=== PATIENT | male | born 1955 | race Two or more races ===

== ENCOUNTER 2018-10-30 23:15 | Inpatient (IN) | payer OTHER ==
[~2018-10-30] VITALS: Ht 170.2 cm; Wt 93.9 kg
--- NOTE | 2018-10-30 23:45 | NUR ---
TO BED 2 [facility] C/O FEVER AND CONGESTION. PT AWAKE, LETHARGIC, RESPONDS TO VOICE BUT FALLS BACK ASLEEP. PT CONFUSED, NO ACUTE DISTRESS NOTED, RESP EVEN AND UNLABORED. PLACE PT ON CARDIAC MONITORING, CONTINUOUS POX, O2@2L/NC. PENDING ER MD STEPHENSON.
[2018-10-31] VITALS (22 sets, daily range): BP systolic 125–157; BP diastolic 68–98
--- NOTE | 2018-10-31 00:15 | NUR ---
STARTED SL 18G TO L HAND, BLOOD DRAWN AND SENT TO LAB.
[2018-10-31 00:42] LABS: BASOPHILS # (AUTO) 0.1 /CMM (0.0-0.2); BASOPHILS % (AUTO) 0.7 % (0.0-2.0); EOSINOPHILS % (AUTO) 0.1 % (0.0-6.0); HEMATOCRIT 59 % (39-51); HEMOGLOBIN 18.8 g/dL (13.5-17.5); LYMPHOCYTES # (AUTO) 1.6 /CMM (0.8-4.8); LYMPHOCYTES % (AUTO) 9.2 % (20.0-44.0); MEAN CORPUSCULAR HGB CONC 32 g/dl (31.0-36.0); MEAN CORPUSCULAR VOLUME 93 fL (80-96); MONOCYTES # (AUTO) 1.3 /CMM (0.1-1.30); MONOCYTES % (AUTO) 7.6 % (2.0-12.0); NEUTROPHILS # (AUTO) 14.5 /CMM (1.8-8.9); NEUTROPHILS % (AUTO) 82.4 % (43.0-81.0); PLATELET COUNT (AUTO) 248 /CMM (150-450); RED BLOOD CELL COUNT(AUTO) 6.29 MIL/uL (4.5-6.0); WHITE BLOOD COUNT (AUTO) 17.6 K/uL (4.3-11.0)
[2018-10-31] MEDS ORDERED: LIDOCAINE 2% JEL UROJET 10 ML MM ONE (00:56)
[2018-10-31 01:01] LABS: LYMPHOCYTES % (MANUAL) 7 % (16-48); MONOCYTES % (MANUAL) 4 % (0-11.0); NEUTROPHILS % (MANUAL) 89 (42-76)
--- NOTE | 2018-10-31 01:05 | NUR ---
I&O CATH DONE, URINE SAMPLE COLLECTED AND SENT TO LAB.
[2018-10-31 01:06] LABS: ALANINE AMINOTRANSFERASE 56 U/L (12-78); ALBUMIN 3.7 g/dL (3.4-5.0); ALKALINE PHOSPHATASE 173 U/L (46-116); ASPARTATE AMINOTRANSFERASE 21 U/L (15-37); B-TYPE NATRIURETIC PEPTIDE 256 PG/ML (0-125); BILIRUBIN,DIRECT 0.2 mg/dL (0.0-0.2); BILIRUBIN,TOTAL 0.7 mg/dL (0.2-1.0); CARBON DIOXIDE 18 mmol/L (21-32); CHLORIDE 114 mmol/L (98-107); CREATININE 2.4 mg/dL (0.6-1.3); POTASSIUM 4.1 mmol/L (3.5-5.1); SODIUM SERUM 155 mmol/L (136-145); TOTAL PROTEIN, SERUM 9.2 g/dL (6.4-8.2); UREA NITROGEN, BLOOD 40 mg/dL (7-18)
[2018-10-31 01:11] LABS: GLUCOSE 615 mg/dL (74-106)
[2018-10-31 01:11] LABS: APPEARANCE,URINE Clear (CLEAR); BILIRUBIN,URINE SMALL (NEGATIVE); BLOOD, URINE Moderate Ery/uL (NEGATIVE); COLOR,URINE Yellow (YELLOW); KETONES,URINE 80 (NEGATIVE); LEUKOCYTE ESTERASE ,URINE Negative (NEGATIVE); NITRITE, URINE Negative (NEGATIVE); PROTEIN,URINE 100 mg/dl (NEGATIVE); UGLUCOSE 500 MG/DL mg/dL (NEGATIVE); UROBILINOGEN,URINE 0.2 EU/dL (0.2)
[2018-10-31] MEDS ORDERED: PIPERACILLIN /TAZOBACTAM 3.375 G VIAL IV ONE (01:11)
[2018-10-31] MEDS ORDERED: PIPERACILLIN /TAZOBACTAM 3.375 G in IV D5W 50 ML IV ONE (01:30)
[2018-10-31] MEDS ORDERED: IV NS 0.9% 1,000 ML BAG IV ONE ×3 (01:30→03:00)
[2018-10-31] MEDS ORDERED: INSULIN REGULAR, HUMAN 100 UNIT/ML 10 ML VIAL IV ONE ×2 (01:30→03:00)
[2018-10-31 01:37] LABS: BACTERIA,URINE Few /HPF (None Seen); SQUAMOUS EPITHELIAL CELL,UR Rare /HPF (None Seen); WBC,URINE 0-2 /HPF (0-3)
[2018-10-31 01:38] LABS: URINE AMORPHOUS URATE Moderate /HPF (None Seen)
[2018-10-31] MEDS ORDERED: INSULIN REGULAR, HUMAN 100 UNIT/ML 10 ML VIAL ONE (01:40)
--- NOTE | 2018-10-31 01:57 | NUR ---
PT TRANSPORTED TO RADIOLOGY FOR CT ABD/PELVIS.
--- NOTE | 2018-10-31 04:32 | NUR ---
ER SPOKE EVA OLIVERMartha REGARDING PT ADMISSION.
[2018-10-31] MEDS ORDERED: IV NS 0.9% 1,000 ML IV SCH (04:34)
[2018-10-31] MEDS ORDERED: MORPHINE SULFATE INJ 2 MG/ML DISP.SYRIN IV PRN (05:00)
[2018-10-31] MEDS ORDERED: ACETAMINOPHEN 650 MG/SUPP.RECT RC PRN (05:00)
[2018-10-31] MEDS ORDERED: BISACODYL SUPP (10 MG) 10 MG/SUPP.RECT SUPP.RECT RC ONE (05:00)
[2018-10-31] MEDS ORDERED: ONDANSETRON HCL/PF 4 MG/2 ML VIAL IVP PRN (05:00)
[2018-10-31] MEDS ORDERED: METRONIDAZOLE 500MG/ NS 100ML 100 ML IV SCH (05:00)
--- NOTE | 2018-10-31 05:29 | NUR ---
REPORT CALLED TO STOCK RECEIVERHAYCINTH SNELL. WILL TRANSPORT PT VIA ACLS PROTOCOL.
[2018-10-31 06:04] LABS: BILIRUBIN,DIRECT 0.2 mg/dL (0.0-0.2); BILIRUBIN,TOTAL 0.6 mg/dL (0.2-1.0); TOTAL PROTEIN, SERUM 7.6 g/dL (6.4-8.2)
--- NOTE | 2018-10-31 06:05 | NUR ---
BASEBALL PLAYER - NOTES - ADMISSION - RECEIVED PT FROM ER FOR DKA, PT IS AWAKE ALERT, THAI SPEAKING, PT HAS LEFT SIDED WEAKNESS, 18G IV IN LEFT THUMB, AND 20G IV IN LEFT HAND. PT IS ON 2L NC O2SAT 94%. PT IS IN SR W BBB, BP 130S. SKIN IS INTACT. WILL CONTINUE TO MONITOR
[2018-10-31 06:06] LABS: CALCIUM, SERUM 8.5 mg/dL (8.5-10.1); CREATININE 2.3 mg/dL (0.6-1.3); MAGNESIUM 2.4 mg/dL (1.8-2.4); PHOSPHORUS 3.5 mg/dL (2.5-4.9)
[2018-10-31] MEDS ORDERED: VANCOMYCIN 1.5 GM in IV D5W 500ml IV ONE (06:30)
[2018-10-31] MEDS ORDERED: VANCOMYCIN 1 GM VIAL ONE (06:43)
[2018-10-31] MEDS ORDERED: VANCOMYCIN 500 MG VIAL ONE (06:45)
[2018-10-31] MEDS: INSULIN REGULAR, HUMAN 100 UNIT in IV NS 0.9% 99 ML IV PRN ×4 (07:13→17:52)
--- NOTE | 2018-10-31 07:20 | NUR ---
RN INITIAL NOTES RECEIVED PT A/OX1, DROWSY. ON 02 AT 2LPM VIA NC. HOB ELEVATED. NO SOB NOTED. NO SIGNS OF PAIN NOTED. IV LINES IN PLACE. IVF INFUSING. PT ON INSULIN DRIP, ACCUCHECK Q1. BMP AT 1000. SKIN INTACT. BLE ELEVATED. CALL LIGHT WITHIN REACH. WILL CLOSELY MONITOR.
[2018-10-31] MEDS ORDERED: INSULIN REGULAR, HUMAN 100 UNIT/ML 3 ML VIAL SQ PRN (08:30)
[2018-10-31] MEDS ORDERED: DEXTROSE 50%-WATER 50 ML DISP.SYRIN IV PRN (08:30)
[2018-10-31] MEDS: DOCUSATE SODIUM 250 MG CAPSULE PO SCH (09:00)
[2018-10-31] MEDS ORDERED: DOCUSATE CALCIUM (240 MG) 240 MG CAPSULE PO SCH (09:00)
[2018-10-31] MEDS: PANTOPRAZOLE 40 MG VIAL IV SCH (09:00)
[2018-10-31] MEDS: PIPERACILLIN /TAZOBACTAM 3.375 G in IV D5W 50 ML IV SCH ×3 (09:05→17:12)
[2018-10-31] MEDS: BLOOD SUGAR DIAGNOSTIC 1 EACH STRIP IN SCH ×11 (09:14→21:40)
[2018-10-31] MEDS ORDERED: ACET325T53 PO (10:05)
[2018-10-31] MEDS ORDERED: BISA10SU8 RC (10:05)
[2018-10-31] MEDS ORDERED: ASPI-1169 PO (10:05)
[2018-10-31] MEDS ORDERED: GABA300C PO (10:05)
[2018-10-31] MEDS ORDERED: LEVE1000 PO (10:05)
[2018-10-31] MEDS ORDERED: LACO150T2 PO (10:05)
[2018-10-31] MEDS: ASPIRIN 81 MG TAB.CHEW PO SCH (12:00)
[2018-10-31] MEDS ORDERED: IV 1/2NS 1000 ML 1,000 ML IV PRN (12:00)
[2018-10-31] MEDS ORDERED: ACETAMINOPHEN 325 MG TABLET PO PRN (12:00)
[2018-10-31] MEDS ORDERED: BISACODYL SUPP (10 MG) 10 MG/SUPP.RECT SUPP.RECT RC PRN (12:00)
[2018-10-31] MEDS: HEPARIN SODIUM, PORCINE 5000 UNITS/1 ML VIAL SQ SCH ×2 (12:24→20:29)
[2018-10-31] MEDS: LEVETIRACETAM (500MG) 1,000 MG in IV NS 0.9% 100 ML IV SCH ×2 (12:44→20:31)
[2018-10-31] MEDS: GABAPENTIN 300 MG CAPSULE PO SCH ×2 (13:00→17:00)
--- NOTE | 2018-10-31 13:00 | NUR ---
RN NOTES 1125 SEEN AND EXAMINED BY LUCERO ROJAS NP. AWARE OF LAB VALUES: WBC 17.6, HGB 18.8, HCT 59, PLATELET 248. SODIUM 161, BUN 35, CREA 2.3, GLUCOSE 468. PT ON INSULIN DRIP. PT HAS LACTIC AND BMP DUE. UNABLE TO DRAW, PT HARD STICK, 2 PHLEBOTOMISTS TRIED 3X. PT FOR PICC INSERTION. LUCERO OK TO DO BMP AND LACTIC DRAW ONCE PICC LINE IS INSERTED. AWAITING US KIDNEY RESULT. ORDERED NEURO CONSULT WITH DR VERAS. IVF CHANGED TO 1/2NS AT 125ML/HR. 1200 PT NOTED COUGHING TOO MUCH. UNABLE TO GIVE PO MEDS D/T HIGH RISK OF ASPIRATION. PT A/OX1, CONFUSED. HOB ELEVATED. PT FOR SWALLOW EVAL. WILL CONTINUE TO MONITOR
[2018-10-31] MEDS ORDERED: FEE PK DOSING 1 MIN EA MC ONE (14:30)
--- NOTE | 2018-10-31 15:00 | NUR ---
RN NOTES 1500 PICC LINE INSERTED ON JORDIN. PLACEMENT CONFIRMED BY CXR. CALLED LAB FOR LACTIC AND BMP DRAW. WILL NOTIFY BRE BARKER FOR RESULTS
[2018-10-31 15:21] LABS: CREATININE, URINE 74.3 MG/DL (30.0-125.0); URINE TOTAL PROTEIN 52.3 mg/dL (0-11.9)
[2018-10-31 15:58] LABS: APPEARANCE,URINE SL CLOUDY (CLEAR); BILIRUBIN,URINE NEGATIVE (NEGATIVE); BLOOD, URINE 1+ Ery/uL (NEGATIVE); COLOR,URINE YELLOW (YELLOW); KETONES,URINE 3+ (NEGATIVE); LEUKOCYTE ESTERASE ,URINE NEGATIVE (NEGATIVE); NITRITE, URINE NEGATIVE (NEGATIVE); PH,URINE 5.5 (5.0-8.0); PROTEIN,URINE TRACE mg/dl (NEGATIVE); UGLUCOSE NEGATIVE (NEGATIVE); UROBILINOGEN,URINE 0.2 EU/dL (0.2)
[2018-10-31 16:09] LABS: BACTERIA,URINE None seen /HPF (None Seen); SQUAMOUS EPITHELIAL CELL,UR Rare /HPF (None Seen); WBC,URINE 0-2 /HPF (0-3)
[2018-10-31 16:30] LABS: CALCIUM, SERUM 7.9 mg/dL (8.5-10.1); CREATININE 1.6 mg/dL (0.6-1.3); MAGNESIUM 1.7 mg/dL (1.8-2.4); PHOSPHORUS 1.9 mg/dL (2.5-4.9); POTASSIUM 3.1 mmol/L (3.5-5.1)
--- NOTE | 2018-10-31 16:54 | NUR ---
RN NOTES CALLED LUCERO ROJAS NP REGARDING BMP RESULT. SODIUM 162, POTASSIUM 3.1, CHLORIDE 128, BUN 22, CREA 1.6, GLUCOSE 285. ON INSULIN DRIP AT 4.9U/HR. ON 1/2NS AT 125ML/HR. PHOS 1.9, MAGNESIUM 1.7. UNEMPLOYMENT BENEFITS CLAIMS TAKER ORDERED CHANGE TO D5 1/2 NS WITH KCL 40MEQ AT 125ML/HR, CHANGE ACCUCHECK TO Q2, KPHOS X2 BAGS AND MAGNESIUM 1GM. AWAITING FOR LACTIC ACID RESULT. WILL CONTINUE TO MONITOR.
[2018-10-31 17:00] LABS: EOSINOPHIL,URINE None Seen
[2018-10-31] MEDS ORDERED: Magnesium 1GM/D5W 100ML PREMIX PIGGYBACK IV ONE (17:00)
[2018-10-31] MEDS ORDERED: Potassium Chloride 40 MEQ in IV D5/0.45 NACL 1,000 ML IV SCH (17:00)
[2018-10-31] MEDS ORDERED: Magnesium 1GM/D5W 100ML PREMIX 100 ML IV SCH (17:30)
[2018-10-31] MEDS: POTASSIUM PHOSPHATE MM 7.5 MMOL in IV D5W 100 ML IV SCH ×2 (17:39→20:28)
--- NOTE | 2018-10-31 18:00 | NUR ---
RN NOTES SEEN AND EXAMINED BY DR VERAS. REVIEWED H&P, CURRENT MEDS AND LAB VALUES. PT A/OX1, CONFUSED. ABLE TO FOLLOW COMMANDS AND ANSER SIMPLE QUESTIONS. NO CHANGE IN LOC NOTED. WILL CONTINUE TO MONITOR.
--- NOTE | 2018-10-31 18:48 | NUR ---
RN CLOSING NOTES NO SIGNIFICANT CHANGE NOTED. NO CHANGE IN LOC NOTED. PT REMAINS ON INSULIN DRIP AT 5.08 U/HR. NEXT ACCUCHECK AT 1900. JORDIN PICC IN PLACE. IVF INFUSING. FC IN PLACE. KEPT CLEAN AND DRY. REPOSITIONED Q2. BLE ELEVATED. ALL NEEDS ATTENDED AND MET. CALL LIGHT WITHIN REACH. WILL MONITOR.
[2018-10-31] MEDS: NYSTATIN (PYXIS) 500,000 UNIT/5 ML ORAL.SUSP PO SCH (20:28)
[2018-10-31] MEDS: LACOSAMIDE 50 MG TABLET PO SCH (21:00)
[2018-10-31 21:51] LABS: CALCIUM, SERUM 7.6 mg/dL (8.5-10.1); CREATININE 1.5 mg/dL (0.6-1.3); PHOSPHORUS 1.6 mg/dL (2.5-4.9)
[2018-10-31] MEDS ORDERED: Potassium Chloride 40 MEQ in IV D5W 1,000 ML IV PRN (23:00)
[2018-11-01] VITALS (15 sets, daily range): BP systolic 119–144; BP diastolic 70–84
[2018-11-01] MEDS: BLOOD SUGAR DIAGNOSTIC 1 EACH STRIP IN SCH ×8 (00:03→23:15)
[2018-11-01] MEDS: PIPERACILLIN /TAZOBACTAM 3.375 G in IV D5W 50 ML IV SCH ×5 (00:03→23:20)
[2018-11-01] MEDS ORDERED: IV PREMIX D5W + KCL 1,000 ML IV ONE (00:17)
[2018-11-01] MEDS: Potassium Chloride 20 MEQ in IV D5W 1,000 ML IV PRN ×3 (01:15→09:12)
[2018-11-01] MEDS: POTASSIUM CL. PREMIX PERIPHER. 50 ML IV SCH ×4 (02:58→06:20)
[2018-11-01 03:44] LABS: CALCIUM, SERUM 8.1 mg/dL (8.5-10.1); CREATININE 1.6 mg/dL (0.6-1.3); MAGNESIUM 1.9 mg/dL (1.8-2.4); POTASSIUM 3.1 mmol/L (3.5-5.1)
[2018-11-01] MEDS: VANCOMYCIN 1.25 GM in IV NS 0.9% 500 ML IV SCH (06:21)
--- NOTE | 2018-11-01 07:00 | NUR ---
REMAINS CONFUSED,FOLLOWING DKA PROTOCOL ORDERED, NO ACUTE DISTRESS NOTED OR VOICED.REMAINS IN NSR
[2018-11-01 08:26] LABS: ALBUMIN 2.3 g/dL (3.4-5.0); BILIRUBIN,TOTAL 0.4 mg/dL (0.2-1.0); CALCIUM, SERUM 7.6 mg/dL (8.5-10.1); CREATININE 1.5 mg/dL (0.6-1.3); MAGNESIUM 1.6 mg/dL (1.8-2.4); PHOSPHORUS 1.7 mg/dL (2.5-4.9); POTASSIUM 3.3 mmol/L (3.5-5.1); TOTAL PROTEIN, SERUM 6.2 g/dL (6.4-8.2)
--- NOTE | 2018-11-01 08:53 | NUR ---
BMP relayed to Mahesh DÍAZ. Rec'd call back & ordered to stop insulin drip & start on moderate sliding scale q6H, check HGBA1c STAT.
[2018-11-01] MEDS: GABAPENTIN 300 MG CAPSULE PO SCH ×3 (08:59→17:29)
[2018-11-01] MEDS: LACOSAMIDE 50 MG TABLET PO SCH ×2 (08:59→21:30)
[2018-11-01] MEDS: DOCUSATE SODIUM 250 MG CAPSULE PO SCH (08:59)
[2018-11-01] MEDS: ASPIRIN 81 MG TAB.CHEW PO SCH (08:59)
[2018-11-01] MEDS ORDERED: DEXTROSE 50%-WATER 50 ML DISP.SYRIN IV PRN (09:00)
--- NOTE | 2018-11-01 09:10 | NUR ---
Pt seen & examined by BRE Aragon & Dr. Lopez w/ orders made & carried out. Per BRE, once NGT in place may place restraint on R arm d/t pulling out of tubes. May order CXR STAT to verify NGT placement. Addendum: 11/01/18 at 1237 by LYNN OWEN RN Addendum: Per rigoberto Aragon start GTF c/o RD.
[2018-11-01] MEDS: NYSTATIN (PYXIS) 500,000 UNIT/5 ML ORAL.SUSP PO SCH ×3 (09:12→17:29)
[2018-11-01] MEDS: PANTOPRAZOLE 40 MG VIAL IV SCH (09:12)
[2018-11-01] MEDS: LEVETIRACETAM (500MG) 1,000 MG in IV NS 0.9% 100 ML IV SCH ×2 (09:12→21:30)
[2018-11-01] MEDS: HEPARIN SODIUM, PORCINE 5000 UNITS/1 ML VIAL SQ SCH ×2 (09:14→21:32)
[2018-11-01 09:19] LABS: BASOPHILS % (AUTO) 0.4 % (0.0-2.0); EOSINOPHILS % (AUTO) 3.3 % (0.0-6.0); HEMATOCRIT 52 % (39-51); HEMOGLOBIN 16.5 g/dL (13.5-17.5); LYMPHOCYTES # (AUTO) 0.5 /CMM (0.8-4.8); LYMPHOCYTES % (AUTO) 7.6 % (20.0-44.0); MEAN CORPUSCULAR HGB CONC 32 g/dl (31.0-36.0); MEAN CORPUSCULAR VOLUME 94 fL (80-96); MONOCYTES # (AUTO) 0.5 /CMM (0.1-1.30); MONOCYTES % (AUTO) 7.4 % (2.0-12.0); NEUTROPHILS # (AUTO) 5.6 /CMM (1.8-8.9); NEUTROPHILS % (AUTO) 81.3 % (43.0-81.0); PLATELET COUNT (AUTO) 154 /CMM (150-450); RED BLOOD CELL COUNT(AUTO) 5.48 MIL/uL (4.5-6.0); WHITE BLOOD COUNT (AUTO) 6.9 K/uL (4.3-11.0)
[2018-11-01] MEDS: IV 1/2NS 1000 ML 1,000 ML IV PRN (09:48)
[2018-11-01] MEDS: Magnesium 1GM/D5W 100ML PREMIX 100 ML IV SCH ×2 (09:56→11:05)
[2018-11-01] MEDS: POTASSIUM PHOSPHATE MM 5 MMOL in IV D5W 100 ML IV SCH ×2 (10:01→12:01)
[2018-11-01 10:42] LABS: ABG BASE EXCESS -4.7 mmol/L; ABG OXYGEN SATURATION 94.1 % (92.0-98.5); ABG PH 7.363 (7.350-7.450); ABG PO2 70.3 mmHg (75.0-100.0); AaDO2 86.9 mmHg; MetHb 0.5 % (0.0-1.5); O2Hb 92.7 % (94.0-97.0); SITE, ABG Left Radial; VENT MODE, BG nasal cannula
[2018-11-01] MEDS: INSULIN REGULAR, HUMAN 100 UNIT/ML 3 ML VIAL SQ PRN ×3 (11:42→23:17)
--- NOTE | 2018-11-01 12:30 | NUR ---
MILIEU COORDINATORADVERTISING COORDINATOR NOTES: Pt transferred to NGUY[facility]N 111/2 via bed, ACLS protocol as ordered. Pt not in any distress. No significant changes noted w/in shift & upon transfer. VS stable. JORDIN PICC line TLC kept patent & intact as well as NGT & FC. All belongings including meds sent w/ pt. Bedside report given to HYACINTH Cassidy for KAELYN.
--- NOTE | 2018-11-01 19:00 | NUR ---
RN NOTE 1200 RECEIVED PT FROM LYNN, MAIL SERVICE COORDINATOR, IN STABLE CONDITION. WILL CARRY OUT ORDERS, PENDING DIETARY CONSULT. ON NC 2 L/MIN, SATURATION 97%, NO SOB. R WRIST RESTRAINT IN PLACE, PT ATTEMPTS TO PULL OUT NG TUBE. NG TUBE IN LEFT NARIS SECURED AND IN PLACE, CHECKED FOR PLACEMENT. NO TUBE FEEDING YET, PENDING VIDEO SWALLOW TOMORROW. GARCIA IN PLACE DRAINING URINE, PICC LINE INTACT AND PATENT. SAFETY MEASURES IN PLACE, CALL LIGHT WITHIN REACH, WILL CONTINUE TO MONITOR.
--- NOTE | 2018-11-01 19:30 | NUR ---
RN INITIAL NOTES RECEIVED THE PATIENT SLEEPING ON BED. EASILY AROUSABLE, PT IS A/O X1 ONLY. ON 2L NASAL CANNULA, SATURATING WELL, NO S/S OF RESP DISTRESS. PT IS SR ON THE MONITOR, HR 70-80'S. LEFT NARE NGT IS CLAMPED, PLACEMENT VERIFIED VIA AUSCULTATION. GARCIA CATH INTACT. RIGHT UPPER ARM PICC WITH 1/2NS @ 75MLS/HR, FLUSHED AND PATENT, NO S/S OF INFILTRATION/INFECTION, DRESSING CDI. RIGHT ARM WRIST RESTRAINT IN PLACE FOR SAFETY. BED LOW AND LOCKED, SIDERAILS UP, CALL LIGHT WITHIN REACH. WILL MONITOR
[2018-11-01] MEDS: INSULIN GLARGINE, 100 UNIT/ML CARTRIDGE SQ SCH (21:33)
[2018-11-02] VITALS: BP 98/65
[2018-11-02] MEDS: IV 1/2NS 1000 ML 1,000 ML IV PRN (00:27)
[2018-11-02 04:00] VITALS: BP 108/68
[2018-11-02] MEDS: BLOOD SUGAR DIAGNOSTIC 1 EACH STRIP IN SCH ×4 (05:19→23:21)
[2018-11-02] MEDS: PIPERACILLIN /TAZOBACTAM 3.375 G in IV D5W 50 ML IV SCH ×4 (05:19→23:22)
[2018-11-02 05:43] LABS: BASOPHILS % (AUTO) 0.7 % (0.0-2.0); EOSINOPHILS % (AUTO) 4.9 % (0.0-6.0); HEMATOCRIT 43 % (39-51); HEMOGLOBIN 14.1 g/dL (13.5-17.5); LYMPHOCYTES # (AUTO) 0.7 /CMM (0.8-4.8); LYMPHOCYTES % (AUTO) 14.3 % (20.0-44.0); MEAN CORPUSCULAR HGB CONC 33 g/dl (31.0-36.0); MEAN CORPUSCULAR VOLUME 91 fL (80-96); MONOCYTES # (AUTO) 0.4 /CMM (0.1-1.30); MONOCYTES % (AUTO) 8.5 % (2.0-12.0); NEUTROPHILS # (AUTO) 3.3 /CMM (1.8-8.9); NEUTROPHILS % (AUTO) 71.6 % (43.0-81.0); PLATELET COUNT (AUTO) 111 /CMM (150-450); RED BLOOD CELL COUNT(AUTO) 4.72 MIL/uL (4.5-6.0); WHITE BLOOD COUNT (AUTO) 4.6 K/uL (4.3-11.0)
[2018-11-02 05:53] LABS: CALCIUM, SERUM 7.5 mg/dL (8.5-10.1); CREATININE 1.3 mg/dL (0.6-1.3); POTASSIUM 3.5 mmol/L (3.5-5.1)
[2018-11-02] MEDS: VANCOMYCIN 1.25 GM in IV NS 0.9% 500 ML IV SCH (06:06)
--- NOTE | 2018-11-02 06:30 | NUR ---
RN CLOSING NOTES PT REMAINS STABLE OF THE MOMENT. ALL DUE MEDS GIVEN, AM CARE PROVIDED. WILL ENDORSE KAELYN TO AM RN
--- NOTE | 2018-11-02 07:36 | NUR ---
RN NGUYỄN OPENING NOTES RECEIVED PATIENT ASLEEP IN BED. ABLE TO AROUSE WITH TOUCH AND VOICE A/O 1-2 ON 2LTRS NASAL CANNULA SATURATING WELL. NO SIGNS OR SYMPTOMS OF RESPIRATORY DISTRESS OR ACUTE PAIN NOTED. RIGHT HAND SOFT WRIST RESTRAINT FOR PULLING AT TUBES. SINUS RYTHMN ON THE MONITOR. GARCIA CATH DRAINING CLEAR YELLOW URINE.JORDIN PICC RUNNING WITH 1/2 NS @ 75ML/HR . LABS DRAWN WILL MONITOR SAFETY PRECAUTIONS IN PLACE BED IN LOW POSITION CALL LIGHT WITHIN REACH
[2018-11-02 08:00] VITALS: BP 119/78
[2018-11-02] MEDS ORDERED: PANTOPRAZOLE 40 MG TABLET.DR PO SCH (08:00)
[2018-11-02] MEDS ORDERED: PHARMACY TO CHANGE PO MEDS TO GT/NG XX PRN (08:30)
[2018-11-02] MEDS: ASPIRIN 81 MG TAB.CHEW PO SCH (08:50)
[2018-11-02] MEDS: NYSTATIN (PYXIS) 500,000 UNIT/5 ML ORAL.SUSP PO SCH (08:51)
[2018-11-02] MEDS: LACOSAMIDE 50 MG TABLET PO SCH (08:51)
[2018-11-02] MEDS: GABAPENTIN 300 MG CAPSULE PO SCH (08:51)
[2018-11-02] MEDS: HEPARIN SODIUM, PORCINE 5000 UNITS/1 ML VIAL SQ SCH ×2 (08:52→20:41)
[2018-11-02] MEDS: LACOSAMIDE 50 MG TABLET GT SCH ×2 (09:00→20:40)
[2018-11-02] MEDS: GABAPENTIN 300 MG CAPSULE GT SCH ×3 (09:00→16:19)
[2018-11-02] MEDS ORDERED: LEVETIRACETAM (250 MG) 250 MG TABLET PO SCH (09:00)
[2018-11-02] MEDS: NYSTATIN (PYXIS) 500,000 UNIT/5 ML ORAL.SUSP GT SCH ×3 (09:00→16:19)
[2018-11-02] MEDS: ASPIRIN 81 MG TAB.CHEW GT SCH (09:00)
[2018-11-02] MEDS: DOCUSATE SODIUM LIQ 100 MG/10 ML UDC GT SCH (09:14)
[2018-11-02] MEDS: PANTOPRAZOLE 40 MG/PACK PACK GT SCH (09:14)
--- NOTE | 2018-11-02 09:21 | NUR ---
RN NGUYỄN NOTES GAVE CRUSHABLE MEDS PRIOR TO RX CONVERSION
[2018-11-02] MEDS ORDERED: ACETAMINOPHEN 650 MG/20.3 ML UDC GT PRN (09:30)
[2018-11-02] MEDS: INSULIN REGULAR, HUMAN 100 UNIT/ML 3 ML VIAL SQ PRN ×3 (11:52→22:30)
[2018-11-02 12:00] VITALS: BP 115/70
[2018-11-02] MEDS ORDERED: BARIUM SULFATE 148 GM SUSP.RECON PO ONE (13:35)
[2018-11-02] MEDS ORDERED: BARIUM SULFATE 240 ML ORAL.SUSP PO ONE (13:35)
[2018-11-02] MEDS ORDERED: Z GUARD REMEDY 2 OZ OINT TP PRN (14:00)
[2018-11-02 16:00] VITALS: BP 122/78
[2018-11-02] MEDS: LACTOBACILLUS RHAMNOSUS GG 1 EACH CAP.SPRINK PO SCH (16:19)
[2018-11-02] MEDS ORDERED: VANCOMYCIN 1 GM in IV D5W 250 ML IV SCH (18:00)
--- NOTE | 2018-11-02 18:57 | NUR ---
CASINO CAGE MANAGER CLOSING NOTES ENDORSED TO NOC . PATIENT PASSED VIDEO SWALLOW AND EATING THICKEN LIQUIDS WITH PUREE. NGT IN PLACE AND CLAMPED FOR MED AND H2O FLUSH. SAFETY AND ASPIRATION PRECAUTION IN PLACE. BILATERAL SOFR WRIST RESTRAINT TO RIGHT HAND FOR PULLING AT TUBES. ALL NEEDS MET. KAELYN
[2018-11-02 20:00] VITALS: BP_SYST 123; BP_SYST 149; BP_DIAS 75; BP_DIAS 83
--- NOTE | 2018-11-02 20:00 | NUR ---
teletype or varitype keyboard operator notes received pts in bed a/o x1 on tele sr and bbb on the monitor , no sob no distress noted ,v/s stable afebrile on 2liters of 02 via nc ,sating 100%due meds given as ordered call light within reach kept pts clean dry and comfortable, pts on ngt intact and patent clamped pts meds given via ngt and flush ngt with 150 cc of water q4hrs ,pts hob elevated at all times ,turned and reposition q 2hrs and prn all needs attended too .will continue to monitor pts
[2018-11-02] MEDS: LEVETIRACETAM SOL (5 ML) 100 MG/ML UDC GT SCH (20:40)
--- NOTE | 2018-11-02 21:00 | NUR ---
director telehealth notes blood sugar for 10 pm is 228 m/dl lantus 23 units given as ordered.
[2018-11-02] MEDS: INSULIN GLARGINE, 100 UNIT/ML CARTRIDGE SQ SCH (22:28)
[2018-11-03] VITALS: BP 105/69
--- NOTE | 2018-11-03 | NUR ---
singing telegram performer notes blood sugar for 12mn is 228 mg/dl =6 units of regular insulin given as order l
[2018-11-03] MEDS: IV 1/2NS 1000 ML 1,000 ML IV PRN (00:56)
[2018-11-03 04:00] VITALS: BP 116/71
[2018-11-03] MEDS: PIPERACILLIN /TAZOBACTAM 3.375 G in IV D5W 50 ML IV SCH ×2 (05:09→12:52)
[2018-11-03] MEDS: INSULIN REGULAR, HUMAN 100 UNIT/ML 3 ML VIAL SQ PRN ×2 (05:16→12:28)
[2018-11-03] MEDS: BLOOD SUGAR DIAGNOSTIC 1 EACH STRIP IN SCH ×2 (05:16→12:27)
--- NOTE | 2018-11-03 06:00 | NUR ---
telephone recorder notes blood sugar for 6am is 169 mg/dl 3 units given per sliding scale
--- NOTE | 2018-11-03 07:30 | NUR ---
RN NOTES RECEIVED PATIENT ASLEEP IN BED. ABLE TO AROUSE TO VOICE A/O 1-2. NO SOB NOTED AT THIS TIME. ON 2LPM VIA NASAL CANNULA. SATURATING WELL. NO COMPLAINTS OF PAIN OR ANY DISCOMFORT AT THIS TIME. PATIENT SINUS RHYTHM ON THE MONITOR, HR AT 70'S. JORDIN PICC RUNNING WITH 1/2 NS @ 75ML/HR . RIGHT HAND SOFT WRIST RESTRAINT IN PLACE DUE TO PULLING AT TUBES: PULSES PALPABLE, ABLE TO WIGGLE HAND, NO DISCOLORATION OR SKIN BREAKDOWN ON THE SITE. RESTRAINTS REMOVE AND REPLACED. GARCIA CATH DRAINING VIA GRAVITY TO CLEAR YELLOW URINE. HOB KEPT ELEVATED. SAFETY PRECAUTIONS OBSERVED AND KEPT IN PLACE. BED IN LOW POSITION ENCOURAGE TO CALL FOR ASSISTANCE OR HELP. CALL LIGHT WITHIN REACH. WILL CONTINUE TO MONITOR PATIENT
[2018-11-03 07:56] LABS: BASOPHILS % (AUTO) 0.7 % (0.0-2.0); EOSINOPHILS % (AUTO) 4.7 % (0.0-6.0); HEMATOCRIT 37 % (39-51); HEMOGLOBIN 12.4 g/dL (13.5-17.5); LYMPHOCYTES # (AUTO) 0.6 /CMM (0.8-4.8); LYMPHOCYTES % (AUTO) 15.1 % (20.0-44.0); MEAN CORPUSCULAR HGB CONC 33 g/dl (31.0-36.0); MEAN CORPUSCULAR VOLUME 90 fL (80-96); MONOCYTES # (AUTO) 0.4 /CMM (0.1-1.30); MONOCYTES % (AUTO) 9.9 % (2.0-12.0); NEUTROPHILS # (AUTO) 2.7 /CMM (1.8-8.9); NEUTROPHILS % (AUTO) 69.6 % (43.0-81.0); PLATELET COUNT (AUTO) 93 /CMM (150-450); RED BLOOD CELL COUNT(AUTO) 4.14 MIL/uL (4.5-6.0); WHITE BLOOD COUNT (AUTO) 3.9 K/uL (4.3-11.0)
[2018-11-03 07:58] LABS: ALBUMIN 1.8 g/dL (3.4-5.0); BILIRUBIN,TOTAL 0.6 mg/dL (0.2-1.0); CALCIUM, SERUM 6.8 mg/dL (8.5-10.1); CREATININE 1.1 mg/dL (0.6-1.3); MAGNESIUM 1.7 mg/dL (1.8-2.4); TOTAL PROTEIN, SERUM 5.2 g/dL (6.4-8.2)
[2018-11-03 08:00] VITALS: BP_SYST 122; BP_SYST 144; BP_DIAS 71; BP_DIAS 76
[2018-11-03 08:10] LABS: POTASSIUM 2.7 mmol/L (3.5-5.1)
[2018-11-03 08:45] LABS: EOSINOPHILS % (MANUAL) 2 % (0-4); LYMPHOCYTES % (MANUAL) 18 % (16-48); MONOCYTES % (MANUAL) 7 % (0-11.0); NEUTROPHILS % (MANUAL) 73 (42-76)
[2018-11-03] MEDS: HEPARIN SODIUM, PORCINE 5000 UNITS/1 ML VIAL SQ SCH (09:00)
[2018-11-03] MEDS: ASPIRIN 81 MG TAB.CHEW GT SCH (09:14)
[2018-11-03] MEDS: DOCUSATE SODIUM LIQ 100 MG/10 ML UDC GT SCH (09:15)
[2018-11-03] MEDS: LEVETIRACETAM SOL (5 ML) 100 MG/ML UDC GT SCH (09:15)
[2018-11-03] MEDS: GABAPENTIN 300 MG CAPSULE GT SCH ×2 (09:16→13:37)
[2018-11-03] MEDS: LACTOBACILLUS RHAMNOSUS GG 1 EACH CAP.SPRINK PO SCH (09:16)
[2018-11-03] MEDS: NYSTATIN (PYXIS) 500,000 UNIT/5 ML ORAL.SUSP GT SCH ×2 (09:16→13:37)
[2018-11-03] MEDS: LACOSAMIDE 50 MG TABLET GT SCH (09:16)
[2018-11-03] MEDS: PANTOPRAZOLE 40 MG/PACK PACK GT SCH (09:16)
[2018-11-03] MEDS ORDERED: POTASSIUM CHLORIDE 20 MEQ TAB.PRT.SR PO ONE (11:00)
[2018-11-03] MEDS ORDERED: Magnesium 1GM/D5W 100ML PREMIX PIGGYBACK IV ONE (11:00)
--- NOTE | 2018-11-03 11:00 | NUR ---
RN NOTES CALLED [facility], REPORT AND REPORT FOR CONTINUITY ODF CARE GIVEN TO HYACINTH FRANCE. INFORMED ROMÁN THAT PICC LINE WILL NOT BE REMOVED SINCE PATIENT WILL BE GETTING ZOSYN Q8H FOR 8 DAYS MORE.
[2018-11-03 12:00] VITALS: BP 132/77
[2018-11-03] MEDS ORDERED: K PHOS NEUTRAL 250 MG TABLET PO ONE (13:30)
[2018-11-03 16:00] VITALS: BP 119/77
--- NOTE | 2018-11-03 17:00 | NUR ---
RN NOTES PATIENT DISCHARGE. ALL DISCHARGE AND MEDICATION INSTRUCTION GIVEN TO HYACINTH FRANCE ON ENDORSEMENT. NO BELONGINGS ACCOUNTED. SKIN IS INTACT ON DISCHARGE. PRESCRIPTION ATTACHED TO THE PACKET WHICH WAS HANDED OVER TO THE ACCOMPANYING EMT. ID BAND REMOVED. JORDIN PICC LINE LEFT IN PLACE DUE TO FURTHER ANTIBIOTIC THERAPY.
== END 2018-11-03 17:00 | DRG 137 ==
LOC: ER 23:24 → ICU 10-31 05:26 → TELE-TD 11-01 12:15 → TELE1 11-02 19:21
PROVIDERS: ADMIT Nurse Practitioner Acute Care; ATTEND Nurse Practitioner Acute Care
PROC: B548ZZA Ultrasonography of Superior Vena Cava, Guidance (ICD-10-PCS; principal; 2018-10-31)
PROC: 02HV33Z Insertion of Infusion Device into Superior Vena Cava, Percutaneous Approach (ICD-10-PCS; principal; 2018-10-31)
DX: J15.6 Pneumonia due to other Gram-negative bacteria (principal); G92 Toxic encephalopathy; E43 Unspecified severe protein-calorie malnutrition; E11.10 Type 2 diabetes mellitus with ketoacidosis without coma; E87.3 Alkalosis; N17.9 Acute kidney failure, unspecified; D68.59 Other primary thrombophilia; R53.2 Functional quadriplegia; J15.9 Unspecified bacterial pneumonia; G40.909 Epilepsy, unspecified, not intractable, without status epilepticus; N18.9 Chronic kidney disease, unspecified; B37.0 Candidal stomatitis; E11.22 Type 2 diabetes mellitus with diabetic chronic kidney disease; D64.9 Anemia, unspecified; E83.39 Other disorders of phosphorus metabolism; E78.5 Hyperlipidemia, unspecified; E83.52 Hypercalcemia; E87.0 Hyperosmolality and hypernatremia; E87.6 Hypokalemia; F03.90 Unspecified dementia, unspecified severity, without behavioral disturbance, psychotic disturbance, mood disturbance, and anxiety; K80.20 Calculus of gallbladder without cholecystitis without obstruction; K56.41 Fecal impaction; J40 Bronchitis, not specified as acute or chronic; K76.0 Fatty (change of) liver, not elsewhere classified; I69.354 Hemiplegia and hemiparesis following cerebral infarction affecting left non-dominant side; I50.9 Heart failure, unspecified; Y95 Nosocomial condition; M48.55XA Collapsed vertebra, not elsewhere classified, thoracolumbar region, initial encounter for fracture
CPT/HCPCS: 36415; 36569; 36600; 71045-TC; 74230-TC; 76770-TC; 80048-TC; 80053-TC; 80076-TC; 80202-TC; 81000-TC; 82570-TC; 82803-TC; 82962-TC; 83605-TC; 83735-TC; 83880; 84100-TC; 84155-TC; 84300-TC; 84484-TC; 85025-TC; 85730-TC; 87040-TC; 87081-TC; 87086-TC; 92526; 92611-TC; C1751; C9113; G0378; J1644; J1815; J1953; J2270; J2543; J3370; J3475; J3480; J3490; J7030; J7040; J7050; J7060; J7070